=== PATIENT | female | born 1950 | race African-American/Black ===

== ENCOUNTER 2018-12-10 18:46 | Emergency (ER) | payer MEDICARE ==
--- NOTE | 2018-12-10 19:34 | RAD ---
XR Wrist 3 Rt View STANDARD History: Pain. Injury. Comparison: None. Findings: There is an impacted transverse oriented distal radial metaphyseal fracture. There is a sma ll avulsion of the ulnar styloid. Moderate joint effusion. Impression: 1. Impacted transversely oriented distal radial metaphyseal fracture. 2. Small avulsion tip of ulnar styloid process.
== END 2018-12-10 19:50 | disposition home or self-care (01) ==
LOC: NAV ERS 18:46
DX: S59.201A Unspecified physeal fracture of lower end of radius, right arm, initial encounter for closed fracture (principal); I10 Essential (primary) hypertension; E11.9 Type 2 diabetes mellitus without complications; Z86.73 Personal history of transient ischemic attack (TIA), and cerebral infarction without residual deficits; W18.30XA Fall on same level, unspecified, initial encounter